=== PATIENT | female | born 1960 | race African-American/Black ===

== ENCOUNTER 2017-12-29 22:13 | Emergency (ER) | payer SELFPAY ==
[~2017-12-29] VITALS: Ht 165.1 cm; Wt 127.0 kg
[~2017-12-29 22:13] MED LIST: ALBUTEROL SULF8.5 GM INH; ANTIVERT25 MG PO; AZITHROMYCIN250 MG ORAL; BENAZEPRIL; BENAZEPRIL HCL40 MG ORAL; CEPHALEXIN500 MG PO; HCTZ; HYDROCHLOROTHIA25 MG ORAL; IBUPROFEN600 M1 PO; IBUPROFEN600 MG ORAL; KEFLEX500 MG ORAL; NORCO 5-325 TA1 EACH ORAL; NORVASC; NORVASC10 MG ORAL; POTASSIUM CHLO20 ME3 PO; TENORMIN50 MG ORAL; VALIUM5 MG ORAL; VALIUM5 MG PO
[2017-12-29 22:40] VITALS: BP 146/105
[2017-12-30] MEDS ORDERED: AMLODIPINE BESY10 MG ORAL (00:01)
[2017-12-30 00:05] VITALS: BP 162/70
--- NOTE | 2017-12-30 19:04 | Cardiology Report ---
APPROVED REPORT EKG Measurement Heart [id number] [id number] Normal sinus rhythm Voltage criteria for left ventricular hypertrophy Nonspecific T wave abnormality Abnormal ECG
--- NOTE | 2017-12-31 04:44 | Emergency Room Report ---
History of Present Illness General Chief Complaint: Headache Source: Patient Present Illness HPI Patient's 57-year-old female presented after increased headache. Patient gradual onset of symptoms. She reports having increased throbbing sensation to her head. She had noticed blood pressure was somewhat elevated. She denies any the neck stiffness. She denies any trauma. She denies any neck stiffness.The patient been out of her blood pressure medications Allergies: Coded Allergies: No Known Allergies (Verified Allergy, Unknown, 11/06/10) Patient History Past Medical History: see triage record Now: No Reviewed Nursing Documentation: PMH: Agreed; PSxH: Agreed Nursing Documentation-PMH Hx Cardiac Problems: No Hx Hypertension: Yes Hx Pacemaker: No Hx Asthma: No Hx COPD: No Hx Diabetes: No - Gestational diabetes Hx Cancer: No Hx Gastrointestinal Problems: No Hx Dialysis: No Hx Neurological Problems: No Hx Cerebrovascular Accident: No Hx Seizures: No Review of Systems All Other Systems: negative except mentioned in HPI Physical Exam Vital Signs Date Time Temp Pulse Resp B/P (MAP) Pulse Ox O2 Delivery O2 Flow Rate FiO2 12/29/17 22:15 98.5 63 146/105 94 Room Air 98.4 12/29/17 22:40 16 General Appearance: well appearing, no apparent distress, alert, GCS 15 Head: normocephalic, atraumatic ENT: hearing grossly normal, normal voice Neck: full range of motion, supple Respiratory: no respiratory distress, speaking full sentences Musculoskeletal: no calf tenderness Neurologic: normal gait Psychiatric: mood/affect normal Skin: no rash Medical Decision Making Diagnostic Impression: Primary Impression: Hypertension Additional Impression: Headache ER Course Patient presented for headache. Differential diagnoses included but was not limited to skull fracture, subarachnoid hemorrhage, meningitis, aneurysm, mass lesion, intracranial hemorrhage. Patient has a benign exam and does not appear to require any further imaging or laboratory testing at this time. Patient was given medications for blood pressure. The patient was noted to have improvement in her symptoms. The patient is advised follow-up with her primary care physician for reevaluation. The patient is advised to follow up with primary care doctor in 1-2 days. Patient is advised to return if any worsening condition or if any changes in status that are concerning. This report is dictated with [employer] special client bus driver software which may occasionally lead to discrepancies related to use of this software. Last Vital Signs Date Time Temp Pulse Resp B/P (MAP) Pulse Ox O2 Delivery O2 Flow Rate FiO2 12/30/17 00:05 98.4 69 16 162/70 96 Room Air 98.4 Status: improved Disposition: HOME, SELF-CARE Condition: Improved Scripts Amlodipine Besylate* (AMLODIPINE BESYLATE*) 10 Mg Tablet 10 MG ORAL DAILY, #30 TAB Prov: Lg Douglas MD 12/30/17 Patient Instructions: General Headache Without Cause Lg Douglas MD Dec 31, 2017 04:44
== END 2017-12-30 00:05 | disposition home or self-care (01) ==
LOC: EMR 22:40
DX: I10 Essential (primary) hypertension (principal); R51 Headache
CPT/HCPCS: 93005; 99283

== ENCOUNTER 2018-06-22 08:03 | Emergency (ER) | payer MEDICAID ==
[~2018-06-22] VITALS: Ht 165.1 cm; Wt 126.1 kg
[~2018-06-22 08:03] MED LIST changes: +AMLODIPINE BESY10 MG ORAL
[2018-06-22 08:30] VITALS: BP 175/88
--- NOTE | 2018-06-22 08:33 | NUR ---
ED Nurse Note: patient ambulated to ER with steady gait, complaining of high BP, headache 4/10 and blured vision in left eye. AAO x 4, skin is dry, intact,warm to touch. patient connected to the monitor. will continue to monitor.
--- NOTE | 2018-06-22 08:33 | Emergency Room Report ---
History of Present Illness General Chief Complaint: Headache Source: Patient Present Illness HPI Patient sense with complaints of left shoulder discomfort with some neuropathy into the left arm Also reported a headache Pressure type sensation diffusely Denies any other chest pain denies any vomiting or diarrhea patient reports having history of high blood pressure takes amlodipine and Vasotec Denies any focal weakness Denies any pleurisy or shortness of breath Denies any change in medications Allergies: Coded Allergies: No Known Allergies (Verified Allergy, Unknown, 11/06/10) Patient History Past Medical History: see triage record Pertinent Family History: none Last Menstrual Period: none Now: No Reviewed Nursing Documentation: PMH: Agreed; PSxH: Agreed Nursing Documentation-PMH Past Medical History: No History, Except For Hx Cardiac Problems: No Hx Hypertension: Yes Hx Pacemaker: No Hx Asthma: No Hx COPD: No Hx Diabetes: No - Gestational diabetes Hx Cancer: No Hx Gastrointestinal Problems: No Hx Dialysis: No Hx Neurological Problems: No Hx Cerebrovascular Accident: No Hx Seizures: No Review of Systems All Other Systems: negative except mentioned in HPI Physical Exam Vital Signs Date Time Temp Pulse Resp B/P (MAP) Pulse Ox O2 Delivery O2 Flow Rate FiO2 06/22/18 08:06 98.1 67 18 173/88 97 Room Air Sp02 EP Interpretation: reviewed, normal General Appearance: well appearing, no apparent distress Head: normocephalic, atraumatic Eyes: bilateral eye PERRL, bilateral eye EOMI ENT: hearing grossly normal, normal pharynx, TMs + canals normal, uvula midline Neck: full range of motion, supple, no meningismus, no bony tend Respiratory: lungs clear, normal breath sounds, no rhonchi, no respiratory distress, no retraction, no accessory muscle use Cardiovascular #1: normal peripheral pulses, regular rate, rhythm, no edema, no gallop, no JVD, no murmur Gastrointestinal: normal bowel sounds, non tender, soft, no mass, no organomegaly, non-distended, no guarding, no hernia, no pulsatile mass, no rebound Genitourinary: no CVA tenderness Musculoskeletal: normal inspection Neurologic: oriented x3, responsive, cost analyst III-XII nml as tested, motor strength/ tone normal, sensory intact Psychiatric: mood/affect normal Skin: normal color, no rash, warm/dry, palpation normal Lymphatic: normal inspection, no adenopathy Medical Decision Making Diagnostic Impression: Primary Impression: Headache Additional Impression: Hypertension ER Course Patient is a fairly complex patient with multiple differential to consideration including but not limited to cardiac cardiopulmonary and vascular emergencies Intracranial pathology also entertained Given the patient's hypertensive presentation imaging study was obtained No obvious acute pathology is seen Patient's blood pressure has improved and the patient is stable for close follow -up Labs Test 06/22/18 08:45 White Blood Count 7.3 K/UL (4.8-10.8) Red Blood Count 5.33 M/UL (4.20-5.40) Hemoglobin 15.1 G/DL (12.0-16.0) Hematocrit 46.8 % (37.0-47.0) Mean Corpuscular Volume 88 FL (80-99) Mean Corpuscular Hemoglobin 28.4 PG (27.0-31.0) Mean Corpuscular Hemoglobin Concent 32.3 G/DL (32.0-36.0) Red Cell Distribution Width 13.1 % (11.6-14.8) Platelet Count 261 K/UL (150-450) Mean Platelet Volume 7.9 FL (6.5-10.1) Neutrophils (%) (Auto) 59.5 % (45.0-75.0) Lymphocytes (%) (Auto) 30.3 % (20.0-45.0) Monocytes (%) (Auto) 6.4 % (1.0-10.0) Eosinophils (%) (Auto) 3.3 % (0.0-3.0) Basophils (%) (Auto) 0.5 % (0.0-2.0) Sodium Level 144 MMOL/L (136-145) Potassium Level 3.8 MMOL/L (3.5-5.1) Chloride Level 107 MMOL/L (98-107) Carbon Dioxide Level 31 MMOL/L (21-32) Anion Gap 6 mmol/L (5-15) Blood Urea Nitrogen 17 mg/dL (7-18) Creatinine 0.9 MG/DL (0.55-1.30) Estimat Glomerular Filtration Rate > 60 mL/min (>60) Glucose Level 115 MG/DL (74-106) Calcium Level 10.4 MG/DL (8.5-10.1) Total Bilirubin 0.6 MG/DL (0.2-1.0) Aspartate Amino Transf (AST/SGOT) 18 U/L (15-37) Alanine Aminotransferase (ALT/SGPT) 27 U/L (12-78) Alkaline Phosphatase 127 U/L (46-116) Total Creatine Kinase 83 U/L (26-308) Creatine Kinase MB 0.6 NG/ML (0.0-3.6) Creatine Kinase MB Relative Index 0.7 Troponin I 0.005 ng/mL (0.000-0.056) Total Protein 8.3 G/DL (6.4-8.2) Albumin 3.4 G/DL (3.4-5.0) Globulin 4.9 g/dL Albumin/Globulin Ratio 0.7 (1.0-2.7) Rhythm Strip Diag. Results EP Interpretation: yes Rate: 60 Rhythm: NSR, no PVC's, no ectopy Chest X-Ray Diagnostic Results Chest X-Ray Diagnostic Results : Chest X-Ray Ordered: Yes # of Views/Limited/Complete: 1 View Indication: Chest Pain EP Interpretation: Yes Interpretation: no consolidation, no effusion, no pneumothorax Impression: No acute disease Electronically Signed by: Mark Salas DO CT/MRI/US Diagnostic Results CT/MRI/US Diagnostic Results : Impression CT headImpression: Negative for acute intracranial bleed or mass effect Incidental finding of multiple subcutaneous soft tissue nodules. These most likely represent sebaceous cysts Last Vital Signs Date Time Temp Pulse Resp B/P (MAP) Pulse Ox O2 Delivery O2 Flow Rate FiO2 06/22/18 08:06 98.1 67 18 173/88 97 Room Air Status: improved Disposition: HOME, SELF-CARE Condition: Improved Referrals: NOT CHOSEN IPA/MD,REFERRING (PCP) Additional Instructions: Patient is provided with the discharge instructions notified to follow up with primary doctor in the next 2-3 days otherwise return to the er with any worsening symptoms. Please note that this report is being documented using [employer] technology. This can lead to erroneous entry secondary to incorrect interpretation by the dictating instrument. Mark Salas DO Jun 22, 2018 08:33
[2018-06-22 08:58] LABS: BASOPHILS % (AUTO) 0.5 % (0.0-2.0); EOSINOPHILS % (AUTO) 3.3 % (0.0-3.0); HEMATOCRIT 46.8 % (37.0-47.0); HEMOGLOBIN 15.1 G/DL (12.0-16.0); LYMPHOCYTES % (AUTO) 30.3 % (20.0-45.0); MEAN CORPUSCULAR VOLUME 88 FL (80-99); MONOCYTES % (AUTO) 6.4 % (1.0-10.0); NEUTROPHILS % (AUTO) 59.5 % (45.0-75.0); PLATELET COUNT 261 K/UL (150-450); RED BLOOD COUNT 5.33 M/UL (4.20-5.40); RED CELL DISTRIBUTION WIDTH 13.1 % (11.6-14.8); WHITE BLOOD COUNT 7.3 K/UL (4.8-10.8)
--- NOTE | 2018-06-22 08:58 | NUR ---
ED Nurse Note: patient went down for CT
--- NOTE | 2018-06-22 09:13 | NUR ---
ED Nurse Note: patient is back from CT, no acute disstress noticed.
[2018-06-22 09:15] LABS: ANION GAP 6 mmol/L (5-15); BLOOD UREA NITROGEN 17 mg/dL (7-18); CALCIUM 10.4 MG/DL (8.5-10.1); CARBON DIOXIDE 31 MMOL/L (21-32); CHLORIDE 107 MMOL/L (98-107); CREATININE 0.9 MG/DL (0.55-1.30); POTASSIUM 3.8 MMOL/L (3.5-5.1); SODIUM 144 MMOL/L (136-145)
--- NOTE | 2018-06-22 09:20 | Diagnostic Imaging Report ---
Indications: Headache and blurry vision Technique: Spiral acquisitions obtained through the brain. Angled axial and coronal 5 x 5 mm slices were reconstructed. Total dose length product 1362.01 mGycm. CTDI vol(s) 70.38 mGy. Dose reduction achieved using automated exposure control Comparison: None. Findings: No acute intrarenal hemorrhage or edema, mass effect, nor midline shift. Normal-sized ventricles and extra axial CSF spaces. Normal maher-white differentiation. Intact calvarium. Visualized orbits and sinuses are unremarkable. The mastoids are clear Incidental note is made of multiple subcutaneous nodules of various sizes, largest in the high right frontal region measuring 17 mm in diameter Impression: Negative for acute intracranial bleed or mass effect Incidental finding of multiple subcutaneous soft tissue nodules. These most likely represent sebaceous cysts The CT scanner at [facility] is accredited by the [employer] and the scans are performed using protocols designed to limit radiation exposure to as low as reasonably achievable to attain images of sufficient resolution adequate for diagnostic evaluation.
[2018-06-22 09:28] LABS: ALANINE AMINOTRANSFERASE 27 U/L (12-78); ALBUMIN 3.4 G/DL (3.4-5.0); ALBUMIN/GLOBULIN RATIO 0.7 (1.0-2.7); ALKALINE PHOSPHATASE 127 U/L (46-116); ASPARTATE AMINO TRANSFERASE 18 U/L (15-37); BILIRUBIN,TOTAL 0.6 MG/DL (0.2-1.0); CKMB 0.6 NG/ML (0.0-3.6); CREATINE KINASE 83 U/L (26-308)
--- NOTE | 2018-06-22 10:06 | Diagnostic Imaging Report ---
Indication: Chest pain Technique: One view of the chest Comparison: 09/05/2014 Findings: Lungs and pleural spaces are clear. Heart size is upper limits normal. No significant interim change Impression: No acute process
[2018-06-22 10:32] VITALS: BP 165/87
[2018-06-22 11:01] VITALS: BP 150/86
--- NOTE | 2018-06-22 11:02 | NUR ---
ER DISCHARGE NOTE: Patient is cleared to be discharged per ERMD, pt is aox4, on room air, with stable vital signs. pt was given dc and prescription instructions, pt was able to verbalize understanding, pt id band and iv site removed without complications. pt is able to ambulate with steady gait. pt took all belongings.
--- NOTE | 2018-06-22 13:22 | Cardiology Report ---
APPROVED REPORT EKG Measurement Heart [id number] [place] 174P20 [id number] Normal sinus rhythm Voltage criteria for left ventricular hypertrophy Abnormal ECG
== END 2018-06-22 11:03 | disposition home or self-care (01) ==
LOC: EMR 08:26
DX: R51 Headache (principal); I10 Essential (primary) hypertension
CPT/HCPCS: 36415; 70450; 71045; 80053; 82550; 82553; 84484; 85025; 93005; 99284

== ENCOUNTER 2018-08-07 17:59 | Emergency (ER) | payer MEDICAID, OTHER ==
[~2018-08-07] VITALS: Ht 165.1 cm; Wt 122.5 kg
[2018-08-07 18:29] VITALS: BP 164/90
[2018-08-07] MEDS ORDERED: AMLODIPINE BESY10 MG ORAL (18:49)
[2018-08-07 18:56] VITALS: BP 158/86
--- NOTE | 2018-08-07 20:41 | Emergency Room Report ---
History of Present Illness General Chief Complaint: Dizziness Source: Patient Present Illness HPI 57-year-old female presents to ED for evaluation. Presents ED complaining of dizziness since this morning. States that she usually feels this way when her blood pressure is high. States that she ran out of her amlodipine. Denies any headaches or blurry vision. Denies neck stiffness. Denies nausea or vomiting. Denies chest pain or shortness of breath. No other aggravating relieving factors. Denies any other associated symptoms Allergies: Coded Allergies: No Known Allergies (Verified Allergy, Unknown, 11/06/10) Patient History Past Medical History: HTN Past Surgical History: none Pertinent Family History: none Social History: Denies: smoking, alcohol use, drug use Last Menstrual Period: menopause Now: No Immunizations: UTD Reviewed Nursing Documentation: PMH: Agreed; PSxH: Agreed Nursing Documentation-PMH Past Medical History: No History, Except For Hx Cardiac Problems: No Hx Hypertension: Yes Hx Pacemaker: No Hx Asthma: No Hx COPD: No Hx Diabetes: No - Gestational diabetes Hx Cancer: No Hx Gastrointestinal Problems: No Hx Dialysis: No Hx Neurological Problems: No Hx Cerebrovascular Accident: No Hx Seizures: No Review of Systems All Other Systems: negative except mentioned in HPI Physical Exam Vital Signs Date Time Temp Pulse Resp B/P (MAP) Pulse Ox O2 Delivery O2 Flow Rate FiO2 08/07/18 18:10 98.4 65 14 186/86 96 Room Air Sp02 EP Interpretation: reviewed, normal General Appearance: no apparent distress, alert, GCS 15, non-toxic, obese Head: normocephalic, atraumatic Eyes: bilateral eye normal inspection, bilateral eye PERRL ENT: hearing grossly normal, normal pharynx, no angioedema, normal voice Neck: full range of motion, supple/symm/no masses Respiratory: chest non-tender, lungs clear, normal breath sounds, speaking full sentences Cardiovascular #1: regular rate, rhythm, no edema Cardiovascular #2: 2+ carotid (R), 2+ carotid (L), 2+ radial (R), 2+ radial (L) , 2+ dorsalis pedis (R), 2+ dorsalis pedis (L) Gastrointestinal: normal bowel sounds, non tender, soft, non-distended, no guarding, no rebound Rectal: deferred Genitourinary: normal inspection, no CVA tenderness Musculoskeletal: back normal, gait/station normal, normal range of motion, non- tender Neurologic: alert, oriented x3, responsive, clinical implementation specialist III-XII nml as tested, motor strength/tone normal, sensory intact, cerebellar normal, normal gait, speech normal Psychiatric: judgement/insight normal, memory normal, mood/affect normal, no suicidal/homicidal ideation Reflexes: 3+ bicep (R), 3+ bicep (L), 3+ tricep (R), 3+ tricep (L), 3+ knee (R) , 3+ knee (L) Skin: normal color, no rash, warm/dry, well hydrated Lymphatic: no adenopathy Medical Decision Making Diagnostic Impression: Primary Impression: HTN ER Course Hospital Course 57-year-old female presents with dizziness, blood pressure elevated. Differential diagnoses include: hypertensive urgency, hypertensive emergency, arrythmia, MN/ACS Clinical course Patient placed on stretcher. After initial history, physical exam reveals an obese female in no acute distress. Is no nuchal rigidity. Cranial nerves II through XII grossly intact. No focal neurological deficits. Remainder physical exam unremarkable BP on assessment is 158/86. No evidence of malignant hypertension or hypertensive emergency. No focal neurological deficits per no evidence of end organ damage. EKGnormal sinus rhythm no acute ischemic changes interpreted by me Discussed findings with patient. Patient has been here multiple times for similar presentation. Has had workups which have been unremarkable. I see no reason to repeat workup at this time. Patient agrees with plan. Will discharge with prescription for amlodipine. Does not have a PMD. We'll provide referrals I. I feel this is a highly complex case requiring extensive working including EKG/Rhythm strip, Xray/CT/US, Blood/urine lab work, repeat exams while in ED, and administration of strong opiates/narcotics for pain control, admission to hospital or close patient follow up. Diagnosis - hypertension Stable and discharged to home with rx Amlopdine. Instructed to followup with PMD. Return to ED if symptoms recur or worsen EKG Diagnostic Results Rate: normal Rhythm: NSR ST Segments: no acute changes ASA given to the pt in ED: No Rhythm Strip Diag. Results EP Interpretation: yes Rhythm: NSR, no PVC's, no ectopy Last Vital Signs Date Time Temp Pulse Resp B/P (MAP) Pulse Ox O2 Delivery O2 Flow Rate FiO2 08/07/18 18:56 98.3 64 15 158/86 99 Room Air Status: improved Disposition: HOME, SELF-CARE Condition: Stable Scripts Amlodipine Besylate* (AMLODIPINE BESYLATE*) 10 Mg Tablet 10 MG ORAL DAILY, #30 TAB Prov: Oral Saab MD 08/07/18 Referrals: NON PHYSICIAN (PCP) [facility] Selvin Lucas [facility] Patient Instructions: Hypertension, [id number] Oral Saab MD Aug 07, 2018 20:41
== END 2018-08-07 19:15 | disposition home or self-care (01) ==
LOC: EMR 19:10
DX: I10 Essential (primary) hypertension (principal)
CPT/HCPCS: 93005; 99282

== ENCOUNTER 2018-11-02 11:47 | Emergency (ER) | payer MEDICAID, OTHER ==
[~2018-11-02] VITALS: Ht 167.6 cm; Wt 128.8 kg
[2018-11-02] MEDS ORDERED: Meclizine 25mg tab ORAL PRN (12:15)
[2018-11-02 12:28] VITALS: BP 158/81
--- NOTE | 2018-11-02 12:30 | Emergency Room Report ---
History of Present Illness General Chief Complaint: Dizziness Present Illness HPI 58-year-old female with history of hypertension currently controlled here complaining of 1 day of dizziness that started at home as patient was sitting down. Patient denies any recent fall or head injury, reports that she is compliant with taking her blood pressure medication, denies alcohol intake and drug use. Patient is currently on 3 different medication for blood pressure reports that she has not taken it today however denies any chest pain, palpitation, shortness of breath, headache, blurry vision. Patient reports that she has history of this for last same potassium was low. Denies nausea and vomiting, abdominal pain, neck distress acid reflux, diarrhea and constipation. Denies blood in stool, urinary symptoms. Patient denies any vertigo and reports that her dizziness does not get worse or better with change of position of her head. She mentions that the dizziness is worse when it comes intermittently as she is seated or standing. Does not report any change of the degree of dizziness upon standing or changing position to sitting or laying down. Denies generalized weakness, unilateral weakness, slurred speech. Patient also reports of 1 week of bilateral knee and low back pain and reports has been taking ibuprofen with minimal relief. Denies fall or injury. Denies tingling and numbness. Denies calf tenderness. Denies fever and chills and recent URI symptoms Allergies: Coded Allergies: No Known Allergies (Verified Allergy, Unknown, 11/06/10) Patient History Past Medical History: see triage record Past Surgical History: unable to obtain Pertinent Family History: none Now: No Immunizations: UTD Reviewed Nursing Documentation: PMH: Agreed; PSxH: Agreed Nursing Documentation-PMH Past Medical History: No History, Except For Hx Cardiac Problems: No Hx Hypertension: Yes Hx Pacemaker: No Hx Asthma: No Hx COPD: No Hx Diabetes: No - Gestational diabetes Hx Cancer: No Hx Gastrointestinal Problems: No Hx Dialysis: No Hx Neurological Problems: No Hx Cerebrovascular Accident: No Hx Seizures: No Review of Systems All Other Systems: negative except mentioned in HPI Physical Exam Vital Signs Date Time Temp Pulse Resp B/P (MAP) Pulse Ox O2 Delivery O2 Flow Rate FiO2 11/02/18 11:52 97.7 68 17 158/81 (106) 99 Room Air Sp02 EP Interpretation: reviewed, normal General Appearance: normal inspection, well appearing, no apparent distress, alert, GCS 15, non-toxic Eyes: bilateral eye normal inspection, bilateral eye PERRL, bilateral eye other - No nystagmus noted ENT: normal ENT inspection, hearing grossly normal, normal pharynx, no angioedema, TMs + canals normal Neck: normal inspection, full range of motion, supple, thyroid normal, no meningismus Respiratory: normal inspection, chest non-tender, lungs clear, normal breath sounds, no rhonchi, no respiratory distress Cardiovascular #1: normal inspection, normal peripheral pulses, regular rate, rhythm, no edema, no murmur, no rub, normal capillary refill Cardiovascular #2: 2+ carotid (R), 2+ carotid (L), 2+ radial (R), 2+ radial (L) Gastrointestinal: normal inspection, non tender, soft, no mass Rectal: deferred Genitourinary: no CVA tenderness Musculoskeletal: normal inspection, back normal, digits/nails normal Neurologic: normal inspection, alert, oriented x3, responsive, entry level lab technician III-XII nml as tested, motor strength/tone normal Psychiatric: normal inspection, judgement/insight normal, memory normal, mood/ affect normal Skin: no rash, normal color Lymphatic: normal inspection, no adenopathy Medical Decision Making PA Attestation All my diagnosis and treatment plans were reviewed ad discussed with my supervising physician Dr. Drummond Diagnostic Impression: Primary Impression: Dizziness Additional Impressions: UTI (urinary tract infection) Hypokalemia ER Course 58-year-old female with history of hypertension currently controlled here complaining of 1 day of dizziness that started at home as patient was sitting down. Patient denies any recent fall or head injury, reports that she is compliant with taking her blood pressure medication, denies alcohol intake and drug use. Patient is currently on 3 different medication for blood pressure reports that she has not taken it today however denies any chest pain, palpitation, shortness of breath, headache, blurry vision. Patient reports that she has history of this for last same potassium was low. Denies nausea and vomiting, abdominal pain, neck distress acid reflux, diarrhea and constipation. Denies blood in stool, urinary symptoms. Patient denies any vertigo and reports that her dizziness does not get worse or better with change of position of her head. She mentions that the dizziness is worse when it comes intermittently as she is seated or standing. Does not report any change of the degree of dizziness upon standing or changing position to sitting or laying down. Denies generalized weakness, unilateral weakness, slurred speech. Patient also reports of 1 week of bilateral knee and low back pain and reports has been taking ibuprofen with minimal relief. Denies fall or injury. Denies tingling and numbness. Denies calf tenderness. Denies fever and chills and recent URI symptoms Ddx considered but are not limited to: Dizziness due to alcohol intoxication, dizziness unspecified, dizziness due to head trauma, dizziness secondary to cardiac reasons Vital signs: are WNL, pt. is afebrile H&PE are most consistent with: UTI, hypokalemia, dizziness ORDERS: CBC, CMP, UA, tox screen, alcohol level, head CT scan noncontrast, chest x-ray, EKG, troponin ER intervention: Meclizine, NS bolus, potassium chloride DISCHARGE: At this time pt. is stable for d/c to home. Will provide printed patient care instructions, and any necessary prescriptions. Care plan and follow up instructions have been discussed with the patient prior to discharge. Patient refused provider. Return to emergency room with worsening symptoms. At this time no neurological deficits, signs of stroke, head injury, cardiac reasons noted for diagnosis of dizziness. Patient was given meclizine for symptom relief and follow-up with a primary care provider. potassium3.2, white blood cells and leukocytes in urine EKG Diagnostic Results Rate: normal Rhythm: NSR ST Segments: no acute changes Chest X-Ray Diagnostic Results Chest X-Ray Diagnostic Results : Chest X-Ray Ordered: Yes # of Views/Limited/Complete: 1 View Indication: Other - Dizziness EP Interpretation: Yes MEET Xray: Interpretation reviewed, by supervising MD, and agrees with findings. Interpretation: no consolidation, no effusion, no pneumothorax, no acute cardiopulmonary disease Impression: No acute disease Electronically Signed by: Letty Massey PA-C Last Vital Signs Date Time Temp Pulse Resp B/P (MAP) Pulse Ox O2 Delivery O2 Flow Rate FiO2 11/02/18 11:52 97.7 68 17 158/81 (106) 99 Room Air Disposition: HOME, SELF-CARE Condition: Stable Scripts Potassium Chloride (Potassium Chloride) 20 Meq Tablet.er 20 MEQ PO DAILY for 5 Days, #10 TAB Prov: Letty Shearer 11/02/18 Meclizine Hcl* (MECLIZINE*) 25 Mg Tablet 25 MG ORAL THREE TIMES A DAY, #15 TAB Prov: Letty Shearer 11/02/18 Nitrofurantoin Monohyd/M-Cryst* (MACROBID 100 MG*) 100 Mg Capsule 100 MG ORAL EVERY 12 HOURS for 7 Days, #14 CAP Prov: Letty Shearer 11/02/18 Patient Instructions: Dizziness, Urinary Tract Infection, [id number] Additional Instructions: Follow-up with a primary care provider for further assessment return to emergency room if worsening symptoms increase your potassium intake drink lots of electrolyte water. Letty Shearer Nov 02, 2018 12:30
--- NOTE | 2018-11-02 12:31 | NUR ---
ED Nurse Note: pt walked in c/o generalized pain . pt states she thinks her potassium level is low. ton goldberg done pt taken to CT and she refused . TON informed.
--- NOTE | 2018-11-02 12:37 | Diagnostic Imaging Report ---
Indication: Chest pain Technique: One view of the chest Comparison: 06/22/2018 Findings: Lungs and pleural spaces are clear. Heart size is normal . No significant interim change Impression: No acute process
[2018-11-02 13:05] LABS: APPEARANCE,URINE CLEAR; BILIRUBIN, URINE NEGATIVE (NEGATIVE); COLOR,URINE PALE YELLOW; GLUCOSE, URINE (UA) NEGATIVE (NEGATIVE); KETONES,URINE NEGATIVE (NEGATIVE); LEUKOCYTE ESTERASE ,URINE 1+ (NEGATIVE); NITRITE,URINE NEGATIVE (NEGATIVE); PH,URINE 6 (4.5-8.0); PROTEIN,URINE NEGATIVE (NEGATIVE); UROBILINOGEN,URINE NORMAL MG/DL (0.0-1.0)
[2018-11-02 13:10] VITALS: BP 147/63
[2018-11-02 13:13] LABS: HEMATOCRIT 43.8 % (37.0-47.0); HEMOGLOBIN 14.5 G/DL (12.0-16.0); LYMPHOCYTES % (AUTO) 35.1 % (20.0-45.0); MEAN CORPUSCULAR VOLUME 88 FL (80-99); MONOCYTES % (AUTO) 3.5 % (1.0-10.0); NEUTROPHILS % (AUTO) 55.4 % (45.0-75.0); PLATELET COUNT 283 K/UL (150-450); RED CELL DISTRIBUTION WIDTH 13.2 % (11.6-14.8); WHITE BLOOD COUNT 8.6 K/UL (4.8-10.8)
[2018-11-02 13:42] LABS: ANION GAP 7 mmol/L (5-15); BLOOD UREA NITROGEN 10 mg/dL (7-18); CALCIUM 9.8 MG/DL (8.5-10.1); CARBON DIOXIDE 29 MMOL/L (21-32); CHLORIDE 106 MMOL/L (98-107); CREATININE 0.9 MG/DL (0.55-1.30); POTASSIUM 3.3 MMOL/L (3.5-5.1); SODIUM 142 MMOL/L (136-145)
[2018-11-02 13:56] LABS: ALANINE AMINOTRANSFERASE 21 U/L (12-78); ALBUMIN 3.1 G/DL (3.4-5.0); ALBUMIN/GLOBULIN RATIO 0.6 (1.0-2.7); ALKALINE PHOSPHATASE 116 U/L (46-116); ASPARTATE AMINO TRANSFERASE 16 U/L (15-37); BILIRUBIN,TOTAL 0.5 MG/DL (0.2-1.0); CKMB < 0.5 NG/ML (0.0-3.6); CREATINE KINASE 78 U/L (26-308)
--- NOTE | 2018-11-02 14:13 | NUR ---
ED Nurse Note: resumed care post lunch pt awake alert on monitor vss . pt K suplemented. giovanni monitor ivf still infusing.
[2018-11-02] MEDS ORDERED: NITROFURANTOIN100 M2 ORAL (14:15)
[2018-11-02] MEDS ORDERED: POTASSIUM CHLO20 ME3 PO (14:15)
[2018-11-02] MEDS ORDERED: MECLIZINE HCL25 MG ORAL (14:15)
[2018-11-02 14:43] VITALS: BP 147/65
--- NOTE | 2018-11-02 14:48 | NUR ---
ED Nurse Note: Pt cleared by health care Provider for discharge. DC instructions/prescription was given and explained to pt and verbalized understanding of teachings. All medical deviecs such as ID band removed. Pt is AAO x4, ambulatory and left with all personal belongings.pt also signed AMA form for declining ct.
--- NOTE | 2018-11-03 17:07 | Cardiology Report ---
APPROVED REPORT EKG Measurement Heart [id number] Normal sinus rhythm Left axis deviation Voltage criteria for left ventricular hypertrophy Nonspecific T wave abnormality Abnormal ECG
== END 2018-11-02 14:49 | disposition home or self-care (01) ==
LOC: EMR 12:29
DX: R42 Dizziness and giddiness (principal); N39.0 Urinary tract infection, site not specified; E87.6 Hypokalemia; I10 Essential (primary) hypertension
CPT/HCPCS: 36415; 71045; 80053; 80307; 80329; 81001; 82550; 82553; 84443; 84484; 85025; 85610; 85651; 85730; 86850; 86900; 86901; 93005; 96360; 99284; J8499

== ENCOUNTER 2018-12-12 12:43 | Emergency (ER) | payer MEDICAID ==
[~2018-12-12] VITALS: Ht 165.1 cm; Wt 83.0 kg
[~2018-12-12 12:43] MED LIST changes: +MECLIZINE HCL25 MG ORAL; +NITROFURANTOIN100 M2 ORAL
--- NOTE | 2018-12-12 12:54 | NUR ---
ED Nurse Note: PT WALKED IN TO ER TODAY FROM HOME. AOX4. PT C/O SWOLLEN INSECT BITE TO LEFT FOREARM X 1 WEEK AGO. PT DENIES PAIN, ITCHING, NAUSEA, VOMITING. PT ACTIVE BLEEDING OR DISCHARGE.
[2018-12-12 12:55] VITALS: BP 148/84
--- NOTE | 2018-12-12 13:06 | NUR ---
ED Nurse Note: URINE COLLECTED AND SENT TO LAB.
[2018-12-12 13:12] LABS: APPEARANCE,URINE CLEAR; BILIRUBIN, URINE NEGATIVE (NEGATIVE); GLUCOSE, URINE (UA) NEGATIVE (NEGATIVE); KETONES,URINE NEGATIVE (NEGATIVE); LEUKOCYTE ESTERASE ,URINE 1+ (NEGATIVE); NITRITE,URINE NEGATIVE (NEGATIVE); PH,URINE 7 (4.5-8.0); PROTEIN,URINE NEGATIVE (NEGATIVE); UROBILINOGEN,URINE NORMAL MG/DL (0.0-1.0)
[2018-12-12 13:21] LABS: COLOR,URINE YELLOW
--- NOTE | 2018-12-12 13:32 | Emergency Room Report ---
History of Present Illness General Chief Complaint: Skin Rash/Abscess Source: Patient, Medical Record Present Illness HPI 58-year-old female with history of hypertension currently controlled here complaining of a pruritic rash and warm to touch on the left forearm x1 week. Patient reports that she got bit by a spider a week ago however has not taken medication for symptom relief. Denies fever and chills, abdominal pain, nausea vomiting, chest pain shortness of breath. Also complains that she woke up this morning with left lower back pain without any radiation rating the pain 3 out of 10. Has not taken medication for pain. Denies urinary symptoms, hematuria. Denies all other associated symptoms. Denies fall or injury Allergies: Coded Allergies: No Known Allergies (Verified Allergy, Unknown, 11/06/10) Patient History Past Medical History: see triage record Past Surgical History: unable to obtain Pertinent Family History: none Last Menstrual Period: N/A Now: No Immunizations: UTD Reviewed Nursing Documentation: PMH: Agreed; PSxH: Agreed Nursing Documentation-PMH Hx Cardiac Problems: No Hx Hypertension: Yes Hx Pacemaker: No Hx Asthma: No Hx COPD: No Hx Diabetes: No - Gestational diabetes Hx Cancer: No Hx Gastrointestinal Problems: No Hx Dialysis: No Hx Neurological Problems: No Hx Cerebrovascular Accident: No Hx Seizures: No Review of Systems All Other Systems: negative except mentioned in HPI Physical Exam Vital Signs Date Time Temp Pulse Resp B/P (MAP) Pulse Ox O2 Delivery O2 Flow Rate FiO2 12/12/18 12:47 97.9 84 18 153/87 (109) 96 Room Air Sp02 EP Interpretation: reviewed, normal General Appearance: no apparent distress, alert, GCS 15, non-toxic Head: normocephalic, atraumatic Eyes: bilateral eye normal inspection, bilateral eye PERRL ENT: hearing grossly normal, normal pharynx, no angioedema, normal voice Neck: full range of motion, supple/symm/no masses Respiratory: chest non-tender, lungs clear, normal breath sounds, no wheezing, speaking full sentences Cardiovascular #1: regular rate, rhythm, no edema, no murmur Gastrointestinal: normal bowel sounds, non tender, soft, non-distended, no guarding, no rebound Rectal: deferred Genitourinary: normal inspection, no CVA tenderness Musculoskeletal: back normal, gait/station normal, normal range of motion, non- tender, calf tenderness Neurologic: alert, oriented x3, responsive, motor strength/tone normal, sensory intact, speech normal Reflexes: 3+ bicep (R), 3+ bicep (L), 3+ tricep (R), 3+ tricep (L), 3+ knee (R) , 3+ knee (L) Skin: warm/dry, well hydrated, other - Cellulitic rash noted on left forearm Lymphatic: no adenopathy Medical Decision Making PA Attestation Diagnosis and treatment plans were reviewed and discussed with my supervising physician Dr. Grissom Diagnostic Impression: Primary Impression: Cellulitis of left forearm Additional Impressions: Insect bite Low back strain ER Course 58-year-old female with history of hypertension currently controlled here complaining of a pruritic rash and warm to touch on the left forearm x1 week. Patient reports that she got bit by a spider a week ago however has not taken medication for symptom relief. Denies fever and chills, abdominal pain, nausea vomiting, chest pain shortness of breath. Also complains that she woke up this morning with left lower back pain without any radiation rating the pain 3 out of 10. Has not taken medication for pain. Denies urinary symptoms, hematuria. Denies all other associated symptoms. Denies fall and injury Ddx considered but are not limited to : Cellulitis, DVT, superficial infection, abscess, low back strain versus pyelonephritis Vital signs: are WNL, pt. is afebrile H&PE are most consistent with: Cellulitis left forearm secondary to insect bite , low back strain ORDERS: Keflex, hydrocortisone cream, Benadryl, Voltaren gel ED INTERVENTIONS: None required at this time. DISCHARGE: At this time pt. is stable for d/c to home. Will provide printed patient care instructions, and any necessary prescriptions. Care plan and follow up instructions have been discussed with the patient prior to discharge. I advised the patient to take medication as directed follow-up with primary care provider worsening symptoms return to the emergency room Last Vital Signs Date Time Temp Pulse Resp B/P (MAP) Pulse Ox O2 Delivery O2 Flow Rate FiO2 12/12/18 12:55 98.1 82 17 148/84 98 Room Air Disposition: HOME, SELF-CARE Condition: Stable Scripts Diclofenac Sodium (VOLTAREN) 100 Gm Gel..gram. 2 GM TP TID, #100 GM Prov: Letty Shearer 12/12/18 Hydrocortisone/Aloe Vera 1%* (HYDROCORTISONE-ALOE 1% CREAM*) Y Cr 1 APPLIC TOPIC Q6H PRN for Itching, #30 GM Prov: Letty Shearer 12/12/18 Diphenhydramine HCl (Benadryl) 25 Mg Capsule 25 MG PO TID, #20 CAP Prov: Letty Shearer 12/12/18 Cephalexin* (KEFLEX*) 500 Mg Capsule 500 MG ORAL EVERY 6 HOURS for 7 Days, #28 CAP Prov: Letty Shearer 12/12/18 Patient Instructions: Cellulitis, [id number], Insect Bite, [id number], Muscle Strain, [id number] Additional Instructions: Take medication as directed follow-up with your primary care provider if worsening symptoms return to the emergency room Letty Shearer Dec 12, 2018 13:32
[2018-12-12] MEDS ORDERED: HYDROCORTISONE-30 GM TOPIC (13:34)
[2018-12-12] MEDS ORDERED: BENADRYL25 M3 PO (13:34)
[2018-12-12] MEDS ORDERED: VOLTAREN100 G1 TP (13:34)
[2018-12-12] MEDS ORDERED: CEPHALEXIN500 MG ORAL (13:34)
--- NOTE | 2018-12-12 13:52 | NUR ---
ED Nurse Note: PT LAYING PEACEFULLY IN BED IN NAD. AOX4. PRESCRIPTION AND DISCHARGE PAPERWORK EXPLAINED TO PT. PT VERBALIZES UNDERSTANDING AND ALL QUESTIONS ANSWERED. PRESCRIPTION AND DISCHARGE PAPERWORK GIVEN TO PT, IV AND ID WRISTBAND REMOVED. PT WALKED OUT OF ER WITH STEADY GAIT AND ALL BELONGINGS.
[2018-12-12 13:53] VITALS: BP 142/82
== END 2018-12-12 13:52 | disposition home or self-care (01) ==
LOC: EMR 13:00
DX: S50.862A Insect bite (nonvenomous) of left forearm, initial encounter (principal); L03.114 Cellulitis of left upper limb; S39.012A Strain of muscle, fascia and tendon of lower back, initial encounter; I10 Essential (primary) hypertension; W57.XXXA Bitten or stung by nonvenomous insect and other nonvenomous arthropods, initial encounter; Y92.9 Unspecified place or not applicable
CPT/HCPCS: 81001; 99282